=== PATIENT | male | born 1950 | race African-American/Black ===

== ENCOUNTER 2016-12-02 19:44 | Emergency (ER) | payer OTHER ==
[2016-12-02 19:50] VITALS: BP 130/64; PULSE 86; TEMP 99.6; BMI 30.3
--- NOTE | 2016-12-02 22:43 | PDOC ---
History of Present Illness - General History Source: Patient Exam Limitations: No Limitations - History of Present Illness Initial Comments: 12/02/16 23:03 The patient is a 66 year old male, with a significant past medical history of prostate and kidney CA, DM, Colon perforation, HTN, HLD who presents to the emergency department with cold like symptoms for the past 3 days. Patient reports generalized malaise, body aches and nonproductive cough. Patient denies any fever or chills. Patient denies any sick contacts or recent travel. He denies chest pain, headache or dizziness. He denies abdominal pain, nausea, vomit, diarrhea or constipation. He denies dysuria, frequency, urgency or hematuria. Allergies: aspirin, codeine, morphine Past surgical history: Hernia repair, colon perforation Social history: Former smoker (20 years ago) PCP: Dr. Vitor Wagoner <Deanna Evangelista - Last Filed: 12/02/16 23:03> - General History Source: Patient <Estuardo Moise - Last Filed: 12/02/16 23:42> - General Chief Complaint: Cold Symptoms Stated Complaint: FATIGUE Time Seen by Provider: 12/02/16 22:40 Past History <Deanna Evangelista - Last Filed: 12/02/16 23:03> - Past Medical History Cancer: Yes (prostate and kidney) Diabetes: Yes GI Disorders: Yes (hernia, colon perforation) HTN: Yes Hypercholesterolemia: Yes - Surgical History Abdominal Surgery: Yes (hernia repair) GI Surgery: Yes (perf colon) - Immunization History Immunization Up to Date: Yes - Suicide/Smoking/Psychosocial Hx Smoking Status: No Smoking History: Never smoked Have you smoked in the past 12 months: No Number of Cigarettes Smoked Daily: 0 If you are a former smoker, when did you quit?: 20 years ago Hx Alcohol Use: Yes Drug/Substance Use Hx: No Substance Use Type: None <Estuardo Moise - Last Filed: 12/02/16 23:42> - Past Medical History Allergies/Adverse Reactions: Allergies Allergy/AdvReac Type Severity Reaction Status Date / Time aspirin Allergy Hives Verified 12/02/16 19:48 codeine [Codeine] Allergy Itching Verified 12/02/16 19:48 morphine Allergy Itching Verified 12/02/16 19:48 Home Medications: Ambulatory Orders Amlodipine Besylate [Norvasc -] 10 mg PO DAILY 12/10/11 Carvedilol [Coreg] 1.375 mg PO BID 12/10/11 Benzonatate [Tessalon Pearls -] 100 mg PO TID #90 capsule 12/02/16 Bicalutamide [Casodex] 50 mg PO DAILY 12/02/16 Enalapril Maleate [Vasotec] 20 mg PO DAILY 12/02/16 Lupron Depot 0 mg IM MONTHLY 12/02/16 Review of Systems - Review of Systems Able to Perform ROS?: Yes Comments:: 12/02/16 23:03 GENERAL/CONSTITUTIONAL: No fever or chills. No weakness. +Generalized malaise. HEAD, EYES, EARS, NOSE AND THROAT: No change in vision. No ear pain or discharge. No sore throat. GASTROINTESTINAL: No nausea, vomiting, diarrhea or constipation. GENITOURINARY: No dysuria, frequency, or change in urination. CARDIOVASCULAR: No chest pain or shortness of breath. RESPIRATORY: +cough. No wheezing, or hemoptysis. MUSCULOSKELETAL: No joint or muscle swelling or pain. No neck or back pain. SKIN: No rash NEUROLOGIC: No headache, vertigo, loss of consciousness, or change in strength/ sensation. ENDOCRINE: No increased thirst. No abnormal weight change. HEMATOLOGIC/LYMPHATIC: No anemia, easy bleeding, or history of blood clots. ALLERGIC/IMMUNOLOGIC: No hives or skin allergy. <Deanna Evangelista - Last Filed: 12/02/16 23:03> *Physical Exam - Vital Signs Last Vital Signs Temp Pulse Resp BP Pulse Ox 99.6 F 86 20 130/64 100 12/02/16 19:48 12/02/16 19:48 12/02/16 19:48 12/02/16 19:48 12/02/16 19:48 - Physical Exam Comments: 12/02/16 23:03 GENERAL: Awake, alert, and fully oriented, in no acute distress HEAD: No signs of trauma EYES: PERRLA, EOMI, sclera anicteric, conjunctiva clear ENT: Auricles normal inspection, hearing grossly normal, nares patent, oropharynx clear without exudates. Moist mucosa NECK: Normal ROM, supple, no lymphadenopathy, JVD, or masses LUNGS: Breath sounds equal, clear to auscultation bilaterally. No wheezes, and no crackles HEART: Regular rate and rhythm, normal S1 and S2, no murmurs, rubs or gallops ABDOMEN: Soft, nontender, normoactive bowel sounds. No guarding, no rebound. No masses EXTREMITIES: Normal range of motion, no edema. No clubbing or cyanosis. No cords, erythema, or tenderness NEUROLOGICAL: Cranial nerves II through XII grossly intact. Normal speech, normal gait SKIN: Warm, Dry, normal turgor, no rashes or lesions noted. <Deanna Evangelista - Last Filed: 12/02/16 23:03> - Vital Signs Last Vital Signs Temp Pulse Resp BP Pulse Ox 99.6 F 86 20 130/64 100 12/02/16 19:48 12/02/16 19:48 12/02/16 19:48 12/02/16 19:48 12/02/16 19:48 <Estuardo Moise - Last Filed: 12/02/16 23:42> Medical Decision Making - Medical Decision Making 12/02/16 23:36 Dr. Moise: The scribe's documentation has been prepared under my direction and personally reviewed by me in its entirery. I confirm that the note above accurately reflects all work, treatment, procedures, and medical decision making performed by me. <Estuardo Moise - Last Filed: 12/02/16 23:42> *DC/Admit/Observation/Transfer - Attestations Scribe Attestion: 12/02/16 23:03 Documentation prepared by Deanna Evangelista, acting as medical office representative for Estuardo Moise DO. <Deanna Evangelista - Last Filed: 12/02/16 23:03> - Discharge Dispostion Admit: No <Estuardo Moise - Last Filed: 12/02/16 23:42> Diagnosis at time of Disposition: Upper respiratory infection - Discharge Dispostion Disposition: HOME Condition at time of disposition: Stable - Referrals Referrals: Ciaran Adler [Primary Care Provider] - - Patient Instructions Printed Discharge Instructions: DI for Common Cold
== END 2016-12-02 23:48 | disposition home or self-care (01) ==
LOC: JERFT 19:44 → JER 19:44
DX: J06.9 Acute upper respiratory infection, unspecified (principal); Z87.891 Personal history of nicotine dependence; I10 Essential (primary) hypertension; E11.9 Type 2 diabetes mellitus without complications; Z85.46 Personal history of malignant neoplasm of prostate
CPT/HCPCS: 87804; 99282-25

== ENCOUNTER 2021-11-06 01:00 | Emergency (ER) | payer OTHER ==
[2021-11-06 01:52] VITALS: BMI 30.7
[2021-11-06 04:07] LABS: EPI CELLS 4 /uL (0-25.1); HYALINE CASTS 3 /uL (0-3.1); URINE APPEARANCE CLEAR; URINE BILIRUBIN 1+ (NEGATIVE); URINE COLOR ORANGE; URINE GLUCOSE (UA) NEGATIVE (NEGATIVE); URINE KETONE NEGATIVE (NEGATIVE); URINE LEUK ESTERASE TRACE (NEGATIVE); URINE NITRITE POSITIVE (NEGATIVE); URINE PROTEIN 2+ (NEGATIVE); URINE RBC 92 /uL (0-23.9); URINE WBC 4 /uL (0-25.8)
[2021-11-06 06:35] VITALS: BP 153/90; PULSE 66; RESP 20; TEMP 97.7
[2021-11-06] MEDS ORDERED: ACETAMINOPHEN 325 MG TABLET (FP) PO ONE (09:13)
[2021-11-06] MEDS ORDERED: ACETAMINOPHEN 325 MG TABLET (FP) ONE (09:39)
== END 2021-11-06 10:10 | disposition home or self-care (01) ==
LOC: JER 01:00
DX: R30.0 Dysuria (principal)
CPT/HCPCS: 76870-TC; 81003; 87086; 99284-25

== ENCOUNTER 2022-07-08 18:52 | Inpatient (IN) | payer OTHER ==
[2022-07-08 19:07] VITALS: BMI 28.8
[2022-07-08] MEDS ORDERED: MECLIZINE HCL 25 MG TABLET (FP) PO ONE (20:18)
[2022-07-08] MEDS ORDERED: SODIUM CHLORIDE 0.9% 1000 ML INFUS.BAG IV ONE (20:18)
[2022-07-08] MEDS ORDERED: ACETAMINOPHEN 1000 MG/100 ML BAG IVPB ONE (20:18)
[2022-07-08] MEDS ORDERED: ACETAMINOPHEN INJECTION 100 ML IVPB ONE (21:42)
[2022-07-08] MEDS ORDERED: MECLIZINE HCL 25 MG TABLET (FP) ONE (21:42)
[2022-07-08 21:48] LABS: EOS % 1.3 % (0-4.5); HEMATOCRIT 38.7 % (35.4-49); HEMOGLOBIN 13.4 GM/dL (11.7-16.9); LYMPH % 29.6 % (8-40); MCH 30.7 pg (25.7-33.7); MCHC 34.6 g/dl (32.0-35.9); MEAN CELL VOLUME 88.9 fl (80-96); MEAN PLT VOLUME 10.3 fl (7.5-11.1); MONO % 12.7 % (3.8-10.2); NEUT % 55.4 % (42.8-82.8); PLATELET COUNT 163 10^3/uL (134-434); RBC 4.35 M/mm3 (4.00-5.60); RDW 13.7 % (11.9-15.9); WHITE BLOOD COUNT 4.2 K/mm3 (4.0-10.0)
[2022-07-08 22:13] LABS: CALCIUM 8.8 mg/dL (8.5-10.1)
[2022-07-08 22:14] LABS: ALBUMIN 3.9 g/dl (3.4-5.0); BLOOD UREA NITROGEN 19.3 mg/dL (7-18); MAGNESIUM 2.4 mg/dL (1.8-2.4)
[2022-07-08 22:17] LABS: CREATININE 1.6 mg/dL (0.55-1.3)
[2022-07-08 22:18] LABS: TOT PROT 7.4 g/dl (6.4-8.2)
[2022-07-08 22:19] LABS: BILIRUBIN,TOTAL 0.2 mg/dL (0.2-1)
[2022-07-08 22:22] LABS: N-TERMINAL BNP 232.8 pg/ml (5-125)
[2022-07-09] MEDS: HEPARIN NA (PORCINE) 5,000 UNITS/ML 1ML VIAL SQ SCH ×2 (06:49→13:37)
[2022-07-09] MEDS: ACETAMINOPHEN 500 MG TABLET (FP) PO PRN ×2 (06:53→17:26)
[2022-07-09 07:47] LABS: HEMATOCRIT 34.6 % (35.4-49); MCH 31.2 pg (25.7-33.7); MCHC 34.8 g/dl (32.0-35.9); MEAN CELL VOLUME 89.7 fl (80-96); MEAN PLT VOLUME 10.4 fl (7.5-11.1); PLATELET COUNT 132 10^3/uL (134-434); RBC 3.85 M/mm3 (4.00-5.60); RDW 13.3 % (11.9-15.9); WHITE BLOOD COUNT 3.9 K/mm3 (4.0-10.0)
[2022-07-09 08:27] LABS: CALCIUM 8.2 mg/dL (8.5-10.1)
[2022-07-09 08:28] LABS: ALBUMIN 3.2 g/dl (3.4-5.0); BLOOD UREA NITROGEN 18.7 mg/dL (7-18)
[2022-07-09 08:31] LABS: BILIRUBIN,TOTAL 1.1 mg/dL (0.2-1); CREATININE 1.4 mg/dL (0.55-1.3)
[2022-07-09 08:32] LABS: TOT PROT 6.2 g/dl (6.4-8.2)
[2022-07-09] MEDS ORDERED: CLOPIDOGREL BISULFATE 75 MG TABLET (FP) PO SCH (10:00)
[2022-07-09] MEDS ORDERED: CARVEDILOL 6.25 MG TABLET (FP) PO SCH (10:00)
[2022-07-09] MEDS ORDERED: SPIRONOLACTONE 25 MG TABLET PO SCH (10:00)
[2022-07-09 10:38] VITALS: RESP 16
[2022-07-09 13:38] VITALS: BP 130/78; PULSE 67; TEMP 98.9
[2022-07-09] MEDS ORDERED: hydrALAZINE HCL 25 MG TABLET (FP) PO SCH (14:00)
[2022-07-09] MEDS ORDERED: MECLIZINE HCL 25 MG TABLET (FP) PO ONE (17:13)
[2022-07-09] MEDS ORDERED: ATORVASTATIN CA 40 MG TABLET (FP) PO SCH ×2 (22:00)
== END 2022-07-09 18:16 | disposition home or self-care (01) | DRG 149 ==
LOC: JER 18:52 → JERBED 21:45 → OBSVTOIN 07-09 01:44 → J4W 07-09 04:05
PROVIDERS: ADMIT Student in an Organized Health Care Education/Training Program; ATTEND Internal Medicine
DX: H81.10 Benign paroxysmal vertigo, unspecified ear (principal); R07.9 Chest pain, unspecified; I12.9 Hypertensive chronic kidney disease with stage 1 through stage 4 chronic kidney disease, or unspecified chronic kidney disease; N18.9 Chronic kidney disease, unspecified; C61 Malignant neoplasm of prostate; M25.561 Pain in right knee
CPT/HCPCS: 36415; 70450-TC; 70551-TC; 71045-TC-FY; 80053; 80061; 83735; 83880; 84484; 85025; 85027; 93005; 93010; 93306-TC; 93880-TC; 97116-GP; 97161-GP; 99285-25; C9803-CS; G0378; J1644; U0003; U0005

== ENCOUNTER 2023-09-07 18:09 | Emergency (ER) | payer OTHER ==
[2023-09-07 18:16] VITALS: BP 140/73; PULSE 73; RESP 18; TEMP 98.3; BMI 30.7
[2023-09-07] MEDS ORDERED: ACETAMINOPHEN INJECTION 100 ML IVPB ONE (19:57)
[2023-09-07] MEDS: SODIUM CHLORIDE 0.9% 500 ML INFUS.BAG IV ONE (20:13)
[2023-09-07] MEDS: ACETAMINOPHEN 1000 MG/100 ML BAG IVPB ONE (20:13)
[2023-09-07 20:24] LABS: BASO % 0.5 % (0-2.0); EOS % 1.6 % (0-4.5); HEMATOCRIT 34.1 % (35.4-49); HEMOGLOBIN 11.6 GM/dL (11.7-16.9); LYMPH % 24.9 % (8-40); MCH 30.7 pg (25.7-33.7); MEAN CELL VOLUME 90.2 fl (80-96); MEAN PLT VOLUME 10.1 fl (7.5-11.1); MONO % 12.2 % (3.8-10.2); NEUT % 60.8 % (42.8-82.8); PLATELET COUNT 125 10^3/uL (134-434); RBC 3.78 M/mm3 (4.00-5.60); RDW 13.5 % (11.9-15.9); WHITE BLOOD COUNT 4.6 K/mm3 (4.0-10.0)
[2023-09-07 20:44] LABS: POTASSIUM 4.3 mmol/L (3.5-5.1)
[2023-09-07 20:46] LABS: PH,URINE 6.5 (5.0-8.0); URINE APPEARANCE CLEAR; URINE BILIRUBIN NEGATIVE (NEGATIVE); URINE COLOR YELLOW; URINE GLUCOSE (UA) NEGATIVE (NEGATIVE); URINE KETONE NEGATIVE (NEGATIVE); URINE LEUK ESTERASE NEGATIVE (NEGATIVE); URINE NITRITE NEGATIVE (NEGATIVE); URINE PROTEIN NEGATIVE (NEGATIVE)
[2023-09-07 20:48] LABS: ALBUMIN 3.6 g/dl (3.4-5.0); CALCIUM 8.8 mg/dL (8.5-10.1)
[2023-09-07 20:51] LABS: CREATININE 1.6 mg/dL (0.55-1.3)
[2023-09-07 20:53] LABS: BILIRUBIN,TOTAL 0.4 mg/dL (0.2-1); TOT PROT 6.4 g/dl (6.4-8.2)
== END 2023-09-07 22:12 | disposition home or self-care (01) ==
LOC: JER 18:09
PROC: 3E033NZ Introduction of Analgesics, Hypnotics, Sedatives into Peripheral Vein, Percutaneous Approach (ICD-10-PCS; principal; 2023-09-07)
DX: K57.90 Diverticulosis of intestine, part unspecified, without perforation or abscess without bleeding (principal)
CPT/HCPCS: 36415; 74176-TC; 80053; 81003; 85025; 87086; 99284-25; J0131

== ENCOUNTER 2024-07-16 07:38 | Inpatient (IN) | payer OTHER ==
[2024-07-16] MEDS ORDERED: ACETAMINOPHEN INJECTION 100 ML ONE (09:03)
[2024-07-16] MEDS ORDERED: MAG HYDROX/AL HYDROX/SIMETH 30 ML UNIT-DOSE CUP ONE (09:03)
[2024-07-16] MEDS ORDERED: FAMOTIDINE 20 MG/50 ML IVPB 20 MG/50 ML MG IVPB ONE (09:04)
[2024-07-16 09:14] LABS: RDW 12.4 % (12.2-16.6)
[2024-07-16] MEDS: MAG HYDROX/AL HYDROX/SIMETH -MYLANTA- ORAL SUSPENSION PO ONE (09:15)
[2024-07-16] MEDS: SODIUM CHLORIDE 1,000 ML IV STA (09:15)
[2024-07-16] MEDS: FAMOTIDINE 20 MG/50 ML IVPB 20 MG/50 ML MG IVPB ONE (09:15)
[2024-07-16] MEDS: ACETAMINOPHEN 1000 MG/100 ML BAG IVPB ONE (09:15)
[2024-07-16 09:16] LABS: ABSOLUTE IMMATURE GRANULOCYTES 0.03 x10^3/uL (0.0-0.031); BASOPHILS # 0.02 x10^3/uL (0.01-0.08); EOSINOPHIL % 1.2 % (0.8-7.0); EOSINOPHILS # 0.06 x10^3/uL (0.04-0.54); HEMATOCRIT 34.3 % (40.1-51.0); HEMOGLOBIN 11.5 g/dL (13.7-17.5); INR 1.05 (0.83-1.09); MCHC 33.5 g/dl (32.3-36.5); MONOCYTE # 0.57 x10^3/uL (0.30-0.82); PLATELET COUNT 139 x10^3/uL (163-337); PROTHROMBIN TIME (PATIENT) 11.5 SEC (9.7-13.0)
[2024-07-16 09:19] LABS: ACTIVATED PTT 30.3 SECONDS (25.2-36.5)
[2024-07-16 09:47] LABS: ALBUMIN 3.3 g/dl (3.4-5.0); BLOOD UREA NITROGEN 21.4 mg/dL (7-18); CALCIUM 9.5 mg/dL (8.5-10.1)
[2024-07-16 09:48] LABS: MAGNESIUM 2.6 mg/dL (1.8-2.4)
[2024-07-16 09:52] LABS: BILIRUBIN,TOTAL 0.6 mg/dL (0.2-1); CREATININE 1.6 mg/dL (0.55-1.3)
[2024-07-16 09:53] LABS: TOT PROT 6.7 g/dl (6.4-8.2)
[2024-07-16 10:21] LABS: PH,URINE 7.5 (5.0-8.0); URINE APPEARANCE CLEAR; URINE BILIRUBIN NEGATIVE (NEGATIVE); URINE COLOR YELLOW; URINE GLUCOSE (UA) NEGATIVE (NEGATIVE); URINE KETONE NEGATIVE (NEGATIVE); URINE LEUK ESTERASE NEGATIVE (NEGATIVE); URINE NITRITE NEGATIVE (NEGATIVE); URINE PROTEIN NEGATIVE (NEGATIVE); URINE UROBILINOGEN 0.2 mg/dL (0.2-1.0)
[2024-07-16 10:54] LABS: AMYLASE 368 U/L (25-115)
[2024-07-16] MEDS: SODIUM CHLORIDE 500 ML IV STA (11:02)
[2024-07-16] MEDS: SODIUM CHLORIDE 0.9% 500 ML INFUS.BAG IV ONE (12:02)
[2024-07-16] MEDS: LACTATED RINGERS SOLUTION 1,000 ML/1,000 ML INFUS.BAG IV SCH (12:31)
[2024-07-16 15:35] VITALS: BMI 31.1
[2024-07-16] MEDS: CARVEDILOL 12.5 MG TABLET (FP) PO SCH (22:01)
[2024-07-16] MEDS: ACETAMINOPHEN 500 MG TABLET (FP) PO PRN (22:23)
[2024-07-17 09:32] LABS: ABSOLUTE IMMATURE GRANULOCYTES 0.01 x10^3/uL (0.0-0.031); BASOPHILS # 0.02 x10^3/uL (0.01-0.08); HEMATOCRIT 32.2 % (40.1-51.0); MEAN CELL VOLUME 90.4 fl (79.0-92.2); RDW 12.3 % (12.2-16.6)
[2024-07-17 09:34] LABS: EOSINOPHIL % 2.5 % (0.8-7.0); EOSINOPHILS # 0.08 x10^3/uL (0.04-0.54); HEMOGLOBIN 10.6 g/dL (13.7-17.5); MCHC 32.9 g/dl (32.3-36.5); MONOCYTE # 0.29 x10^3/uL (0.30-0.82); MONOCYTE % 9.2 % (5.3-12.2); PLATELET COUNT 134 x10^3/uL (163-337)
[2024-07-17] MEDS: HEPARIN NA (PORCINE) 5,000 UNITS/ML 1ML VIAL SQ SCH (09:45)
[2024-07-17] MEDS: CHLORTHALIDONE 25 MG TABLET PO SCH (09:45)
[2024-07-17] MEDS: ENALAPRIL MALEATE 5 MG TABLET PO SCH (09:45)
[2024-07-17 09:59] LABS: BLOOD UREA NITROGEN 13.4 mg/dL (7-18); CALCIUM 8.9 mg/dL (8.5-10.1); POTASSIUM 4.1 mmol/L (3.5-5.1)
[2024-07-17 10:01] LABS: CREATININE 1.3 mg/dL (0.55-1.3)
[2024-07-17] MEDS: GABAPENTIN 100 MG CAPSULE PO ONE (10:46)
[2024-07-17 11:31] LABS: ALBUMIN 2.8 g/dl (3.4-5.0)
[2024-07-17 11:33] LABS: BILIRUBIN,DIRECT 0.2 mg/dL (0.0-0.2)
[2024-07-17 11:35] LABS: BILIRUBIN,TOTAL 0.4 mg/dL (0.2-1)
[2024-07-17 11:36] LABS: TOT PROT 5.6 g/dl (6.4-8.2)
[2024-07-17] MEDS: IRON SUCROSE INJECTION 200 MG in SODIUM CHLORIDE 100 ML IVPB ONE (15:43)
[2024-07-18] MEDS ORDERED: KETOROLAC TROMETHAMINE 15 MG/ML VIAL IM ONE (04:47)
[2024-07-18] MEDS: KETOROLAC TROMETHAMINE 15 MG/ML VIAL IVPUSH ONE (05:08)
[2024-07-18 08:53] LABS: HEMATOCRIT 34.6 % (40.1-51.0); HEMOGLOBIN 11.4 g/dL (13.7-17.5); MCHC 32.9 g/dl (32.3-36.5); MEAN CELL VOLUME 89.9 fl (79.0-92.2); MEAN PLT VOLUME 11.2 fl (9.4-12.4); PLATELET COUNT 155 x10^3/uL (163-337); RDW 12.3 % (12.2-16.6)
[2024-07-18 09:12] LABS: POTASSIUM 3.8 mmol/L (3.5-5.1)
[2024-07-18 09:24] LABS: BLOOD UREA NITROGEN 14.2 mg/dL (7-18); CALCIUM 9.3 mg/dL (8.5-10.1)
[2024-07-18 09:25] LABS: ALBUMIN 3.1 g/dl (3.4-5.0); MAGNESIUM 2.1 mg/dL (1.8-2.4)
[2024-07-18 09:27] LABS: CREATININE 1.3 mg/dL (0.55-1.3); PHOSPHOROUS 3.7 mg/dL (2.5-4.9)
[2024-07-18 09:29] LABS: BILIRUBIN,TOTAL 0.3 mg/dL (0.2-1); TOT PROT 6.4 g/dl (6.4-8.2)
[2024-07-18] MEDS: CARVEDILOL 12.5 MG TABLET (FP) PO SCH (21:11)
[2024-07-18] MEDS: ENALAPRIL MALEATE 5 MG TABLET PO SCH (21:12)
[2024-07-19 09:46] LABS: HEMATOCRIT 33.6 % (40.1-51.0); HEMOGLOBIN 11.4 g/dL (13.7-17.5); MCHC 33.9 g/dl (32.3-36.5); MEAN PLT VOLUME 10.9 fl (9.4-12.4); PLATELET COUNT 157 x10^3/uL (163-337); RDW 11.9 % (12.2-16.6)
[2024-07-19 11:41] LABS: POTASSIUM 3.5 mmol/L (3.5-5.1)
[2024-07-19 11:54] LABS: ALBUMIN 3.2 g/dl (3.4-5.0); BLOOD UREA NITROGEN 18.4 mg/dL (7-18); CALCIUM 9.3 mg/dL (8.5-10.1)
[2024-07-19 11:57] LABS: CREATININE 1.5 mg/dL (0.55-1.3); PHOSPHOROUS 3.9 mg/dL (2.5-4.9)
[2024-07-19 11:58] LABS: BILIRUBIN,TOTAL 0.4 mg/dL (0.2-1); TOT PROT 6.2 g/dl (6.4-8.2)
[2024-07-19] MEDS: PANTOPRAZOLE 40 MG TABLET PO SCH (21:17)
[2024-07-20 08:37] LABS: ABSOLUTE IMMATURE GRANULOCYTES 0.02 x10^3/uL (0.0-0.031); BASOPHILS # 0.02 x10^3/uL (0.01-0.08); EOSINOPHILS # 0.13 x10^3/uL (0.04-0.54); HEMATOCRIT 34.8 % (40.1-51.0); HEMOGLOBIN 11.7 g/dL (13.7-17.5); MCHC 33.6 g/dl (32.3-36.5); MEAN CELL VOLUME 88.5 fl (79.0-92.2); MEAN PLT VOLUME 10.8 fl (9.4-12.4); MONOCYTE # 0.52 x10^3/uL (0.30-0.82); PLATELET COUNT 158 x10^3/uL (163-337)
[2024-07-20 08:57] LABS: POTASSIUM 3.9 mmol/L (3.5-5.1)
[2024-07-20 09:00] LABS: CALCIUM 9.1 mg/dL (8.5-10.1)
[2024-07-20 09:01] LABS: ALBUMIN 3.1 g/dl (3.4-5.0); BLOOD UREA NITROGEN 24.7 mg/dL (7-18); MAGNESIUM 2.2 mg/dL (1.8-2.4)
[2024-07-20 09:03] LABS: INR 1.06 (0.83-1.09); PROTHROMBIN TIME (PATIENT) 11.7 SEC (9.7-13.0)
[2024-07-20 09:04] LABS: CREATININE 1.7 mg/dL (0.55-1.3)
[2024-07-20 09:05] LABS: BILIRUBIN,TOTAL 0.3 mg/dL (0.2-1); TOT PROT 6.4 g/dl (6.4-8.2)
[2024-07-20] MEDS: CARVEDILOL 6.25 MG TABLET (FP) PO SCH (09:35)
[2024-07-20] MEDS: amLODIPine BESYLATE 2.5 MG TABLET (FP) PO SCH (16:37)
[2024-07-20] MEDS: ATORVASTATIN CA 10 MG TABLET (FP) PO SCH (21:17)
[2024-07-21 10:39] LABS: ABSOLUTE IMMATURE GRANULOCYTES 0.05 x10^3/uL (0.0-0.031); BASOPHILS # 0.02 x10^3/uL (0.01-0.08); EOSINOPHIL % 2.9 % (0.8-7.0); EOSINOPHILS # 0.13 x10^3/uL (0.04-0.54); HEMATOCRIT 35.1 % (40.1-51.0); HEMOGLOBIN 11.8 g/dL (13.7-17.5); MCHC 33.6 g/dl (32.3-36.5); MEAN CELL VOLUME 89.5 fl (79.0-92.2); MEAN PLT VOLUME 10.9 fl (9.4-12.4); MONOCYTE # 0.53 x10^3/uL (0.30-0.82); MONOCYTE % 11.9 % (5.3-12.2); PLATELET COUNT 171 x10^3/uL (163-337); RDW 12.2 % (12.2-16.6)
[2024-07-21 10:40] LABS: INR 1.06 (0.83-1.09); PROTHROMBIN TIME (PATIENT) 11.5 SEC (9.7-13.0)
[2024-07-21] MEDS: SODIUM CHLORIDE 0.45% 1,000 ML IV SCH (11:11)
[2024-07-21 11:19] LABS: ALBUMIN 3.2 g/dl (3.4-5.0); BLOOD UREA NITROGEN 30.7 mg/dL (7-18); CALCIUM 9.1 mg/dL (8.5-10.1)
[2024-07-21 11:21] LABS: BILIRUBIN,TOTAL 0.4 mg/dL (0.2-1); CREATININE 1.9 mg/dL (0.55-1.3); TOT PROT 6.6 g/dl (6.4-8.2)
[2024-07-21] MEDS: LACTATED RINGERS SOLUTION 1,000 ML/1,000 ML INFUS.BAG IV STA (15:01)
[2024-07-21] MEDS ORDERED: INSULIN ASPART SLIDING SCALE (NOVOLOG) 1 VIAL SQ ONE (18:14)
[2024-07-21 18:29] VITALS: RESP 18
[2024-07-22] MEDS: POLYETHYLENE GLYCOL (HEALTHYLAX) 3350 17 GM PACKET PO SCH (00:46)
[2024-07-22] MEDS: SENNOSIDES 8.8 MG/5 ML SYRUP PO ONE (00:47)
[2024-07-22 08:27] VITALS: BP 171/92; PULSE 51; TEMP 97.5
[2024-07-22 10:13] LABS: HEMATOCRIT 36.6 % (40.1-51.0); MCHC 32.8 g/dl (32.3-36.5); MEAN CELL VOLUME 89.7 fl (79.0-92.2); MEAN PLT VOLUME 10.7 fl (9.4-12.4); PLATELET COUNT 194 x10^3/uL (163-337); RDW 12.4 % (12.2-16.6)
[2024-07-22 10:42] LABS: POTASSIUM 3.9 mmol/L (3.5-5.1)
[2024-07-22 11:00] LABS: ALBUMIN 3.3 g/dl (3.4-5.0); BLOOD UREA NITROGEN 27.1 mg/dL (7-18); CALCIUM 9.2 mg/dL (8.5-10.1); MAGNESIUM 2.4 mg/dL (1.8-2.4)
[2024-07-22 11:03] LABS: CREATININE 1.7 mg/dL (0.55-1.3); PHOSPHOROUS 4.1 mg/dL (2.5-4.9)
[2024-07-22 11:05] LABS: BILIRUBIN,TOTAL 0.3 mg/dL (0.2-1); TOT PROT 7.1 g/dl (6.4-8.2)
== END 2024-07-22 13:00 | disposition home or self-care (01) | DRG 439 ==
LOC: JER 07:38 → JERBED 11:40 → J5S 15:09 → OBSVTOIN 07-17 08:31
PROVIDERS: ADMIT Internal Medicine
PROC: 0DJ08ZZ Inspection of Upper Intestinal Tract, Via Natural or Artificial Opening Endoscopic (ICD-10-PCS; principal; 2024-07-21 11:00)
DX: K85.90 Acute pancreatitis without necrosis or infection, unspecified (principal); D61.818 Other pancytopenia; I12.9 Hypertensive chronic kidney disease with stage 1 through stage 4 chronic kidney disease, or unspecified chronic kidney disease; N18.9 Chronic kidney disease, unspecified; Z90.5 Acquired absence of kidney; D64.9 Anemia, unspecified; Z85.528 Personal history of other malignant neoplasm of kidney; Z85.46 Personal history of malignant neoplasm of prostate
CPT/HCPCS: 0241U-QW; 36415; 71045-TC-FY; 74177-TC; 74181-TC; 76705-TC; 80048; 80053; 80061; 80076; 81003; 82150; 82728; 82787; 83036; 83540; 83550; 83690; 83735; 83880; 84100; 84443; 84478; 84484; 85025; 85027; 85610; 85730; 86850; 86900; 86901; 87086; 93005; 93010; 93306-TC; 99285-25; G0378; J0131; J1644; J1756

== ENCOUNTER 2024-12-22 10:18 | Inpatient (IN) | payer OTHER ==
[2024-12-22 12:35] LABS: ABSOLUTE IMMATURE GRANULOCYTES 0.01 x10^3/uL (0.0-0.031)
[2024-12-22 12:36] LABS: BASOPHILS # 0.02 x10^3/uL (0.01-0.08); EOSINOPHIL % 1.6 % (0.8-7.0); EOSINOPHILS # 0.07 x10^3/uL (0.04-0.54); IMMATURE PLATELET FRACTION # 7.50 x10^3/uL; MCHC 34.0 g/dl (32.3-36.5); MEAN CELL VOLUME 90.3 fl (79.0-92.2); MEAN PLT VOLUME 11.3 fl (9.4-12.4); MONOCYTE # 0.50 x10^3/uL (0.30-0.82); MONOCYTE % 11.1 % (5.3-12.2); RDW 12.9 % (12.2-16.6)
[2024-12-22 12:42] LABS: INR 1.08 (0.83-1.09); PROTHROMBIN TIME (PATIENT) 11.9 SEC (9.7-13.0)
[2024-12-22 12:45] LABS: ACTIVATED PTT 28.8 SECONDS (25.2-36.5)
[2024-12-22 13:01] LABS: GLUCOSE,RANDOM 103.0 mg/dL (74-106); TOT PROT 6.7 g/dl (6.4-8.2)
[2024-12-22 13:02] LABS: CO2 22.0 mmol/L (21-32)
[2024-12-22 13:03] LABS: ALK PHOS 62.0 U/L (40-150)
[2024-12-22 13:06] LABS: CREATININE 1.32 mg/dL (0.55-1.3); SGOT/AST 21.0 U/L (5-34); SGPT/ALT 9.0 U/L (0-55)
[2024-12-22] MEDS: SODIUM CHLORIDE 1,000 ML IV SCH (16:47)
[2024-12-22] MEDS: hydrALAZINE HCL 50 MG TABLET (FP) PO ONE (16:48)
[2024-12-22 18:36] VITALS: BMI 31.1
[2024-12-22] MEDS: hydrALAZINE HCL 50 MG TABLET (FP) PO SCH (21:20)
[2024-12-22] MEDS: OXYMETAZOLINE 0.05% NASAL SOLUTION 15 ML BOTTLE NS ONE (21:20)
[2024-12-22] MEDS: CARVEDILOL 12.5 MG TABLET (FP) PO SCH (21:22)
[2024-12-22] MEDS: HEPARIN NA (PORCINE) 5,000 UNITS/ML 1ML VIAL SQ SCH (21:22)
[2024-12-22] MEDS: NIFEdipine E.R. 30 MG TABLET PO SCH (21:30)
[2024-12-22] MEDS: LATANOPROST 0.005% OPHTH SOLN 2.5ML BOTTLE OU SCH (21:51)
[2024-12-22] MEDS ORDERED: CARVEDILOL 12.5 MG TABLET (FP) PO SCH (22:00)
[2024-12-23 09:33] LABS: N-TERMINAL BNP 1138.8 pg/mL (0-299.9)
[2024-12-23] MEDS: ENALAPRIL MALEATE 10 MG TABLET PO SCH (13:25)
[2024-12-23] MEDS: SOLIFENACIN SUCCINATE 5 MG TAB PO SCH (13:26)
[2024-12-23 17:37] LABS: GLUCOSE,RANDOM 98.0 mg/dL (74-106)
[2024-12-23 17:39] LABS: CO2 21.0 mmol/L (21-32)
[2024-12-23 17:43] LABS: CREATININE 1.77 mg/dL (0.55-1.3)
[2024-12-23] MEDS: ATORVASTATIN CA 10 MG TABLET (FP) PO SCH (22:20)
[2024-12-24 07:13] LABS: ABSOLUTE IMMATURE GRANULOCYTES 0.01 x10^3/uL (0.0-0.031); BASOPHILS # 0.02 x10^3/uL (0.01-0.08); EOSINOPHILS # 0.12 x10^3/uL (0.04-0.54); MEAN PLT VOLUME 11.4 fl (9.4-12.4); MONOCYTE # 0.48 x10^3/uL (0.30-0.82)
[2024-12-24 07:15] LABS: EOSINOPHIL % 2.9 % (0.8-7.0); IMMATURE PLATELET FRACTION # 6.40 x10^3/uL; MCHC 33.1 g/dl (32.3-36.5); MEAN CELL VOLUME 91.1 fl (79.0-92.2); MONOCYTE % 11.5 % (5.3-12.2); RDW 13.3 % (12.2-16.6)
[2024-12-24 07:52] LABS: GLUCOSE,RANDOM 88.0 mg/dL (74-106)
[2024-12-24 07:54] LABS: CO2 21.0 mmol/L (21-32)
[2024-12-24 07:58] LABS: CREATININE 1.59 mg/dL (0.55-1.3); LDL CHOLESTEROL (ONLY SJRH) 90.0 mg/dL (5-100)
[2024-12-24] MEDS ORDERED: ENALAPRIL MALEATE 10 MG TABLET PO SCH (16:09)
[2024-12-25 08:19] LABS: MEAN CELL VOLUME 90.8 fl (79.0-92.2)
[2024-12-25 08:21] LABS: IMMATURE PLATELET FRACTION # 7.70 x10^3/uL; MCHC 33.1 g/dl (32.3-36.5); MEAN PLT VOLUME 11.8 fl (9.4-12.4); RDW 13.2 % (12.2-16.6)
[2024-12-25 08:58] LABS: GLUCOSE,RANDOM 82.0 mg/dL (74-106)
[2024-12-25 08:59] LABS: CO2 23.0 mmol/L (21-32)
[2024-12-25 09:04] LABS: CREATININE 1.37 mg/dL (0.55-1.3)
[2024-12-25] MEDS: ENALAPRIL MALEATE 10 MG TABLET PO SCH (09:23)
[2024-12-25 15:15] VITALS: BP 134/83; PULSE 54; RESP 16; TEMP 97.5
== END 2024-12-25 15:20 | disposition home or self-care (01) | DRG 312 ==
LOC: JER 10:18 → JERBED 14:15 → J4W 16:15 → UNDODISOB 20:02 → OBSVTOIN 12-23 14:05 → J4W 12-23 23:37
PROVIDERS: ADMIT Student in an Organized Health Care Education/Training Program; ATTEND Student in an Organized Health Care Education/Training Program
DX: R55 Syncope and collapse (principal); E78.5 Hyperlipidemia, unspecified; I12.9 Hypertensive chronic kidney disease with stage 1 through stage 4 chronic kidney disease, or unspecified chronic kidney disease; N18.9 Chronic kidney disease, unspecified; R00.1 Bradycardia, unspecified; D64.9 Anemia, unspecified; E11.22 Type 2 diabetes mellitus with diabetic chronic kidney disease
CPT/HCPCS: 36415; 70450-TC; 71045-TC-FY; 71275-TC; 72125-TC; 72141-TC; 73110-TC-RT-FY; 73130-TC-RT-FY; 80048; 80053; 80061; 83735; 83880; 84100; 84439; 84443; 84484; 85025; 85027; 85379; 85610; 85730; 86850; 86900; 86901; 87637-QW; 93005; 93010; 93306-TC; 93880-TC; 93970-TC; 97116-GP; 97161-GP; 99285-25; G0378; Q9967